=== PATIENT | male | born 1990 | race American Indian/Alaskan Native ===

== ENCOUNTER 2017-07-08 19:35 | Emergency (ER) | payer MEDICAID ==
[2017-07-08] MEDS ORDERED: BENTYL PO ONE (23:31)
[2017-07-08] MEDS ORDERED: ZOFRAN ODT PO ONE (23:31)
--- NOTE | 2017-07-08 23:31 | Emergency Department Report ---
Vomiting/Diarrhea - HPI Chief Complaint: Nausea/Vomiting/Diarrhea Stated Complaint: STOMACH VIRUS Time Seen by Provider: 07/08/17 23:04 Duration: Today Severity: mild (abdominal cramping upper abdomen 2/10) Nausea/Vomiting Severity: Mild (vomited twice this morning) Diarrhea Severity: Mild (diarrhea 1) Pain Location: Epigastric (cramp) Pain Severity: Mild (2/10) Symptoms: Yes Watery Diarrhea, Yes Able to Tolerate Fluids, Yes Family w/ Similar Symptoms (patient said that he lifted his sister who has the same symptoms.), Yes Contacts w/ Similar Symptoms (lives with his sister with similar symptoms), No Bloody diarrhea, No Fever, No Recent Unusual Foods, No Recent Untreated Water, No Recent use of Antibiotics, No Rash, No Hematuria, No Recent URI Symptoms Other History: Patient he reported nausea vomiting and diarrhea this morning with some abdominal cramping to his epigastric area. Denies any vomiting blood or any blood in his stool. Abdominal pain is 2/10. Pain is crampy. Pain is intermittent and nothing makes it better and nothing makes it worse Patient exposed to his sister who has symptoms of nausea vomiting and diarrhea. He said his sister has a bug. No medication taken for pain. Patient denies any urinary symptoms or any back pain. Denies any chest pain or shortness of breath. Denies any cough or cold symptoms. Denies any fever or chills. ED Review of Systems ROS: Stated complaint: STOMACH VIRUS Other details as noted in HPI Comment: All other systems reviewed and negative Constitutional: no symptoms reported ENT: denies: throat pain Respiratory: no symptoms reported Cardiovascular: denies: chest pain, palpitations, dyspnea on exertion, edema, syncope, paroxysmal nocturnal dyspnea Gastrointestinal: abdominal pain, nausea, vomiting, diarrhea. denies: constipation, hematemesis, melena, hematochezia Genitourinary: denies: frequency, hematuria, discharge, testicular pain, testicular mass Musculoskeletal: denies: back pain, joint swelling, arthralgia, myalgia Skin: denies: rash Neurological: denies: headache, weakness, numbness ED Past Medical Hx - Past Medical History Previous Medical History?: No - Surgical History Past Surgical History?: No - Family History Family history: no significant - Social History Smoking Status: Current Every Day Smoker Substance Use Type: Alcohol - Medications Home Medications: Home Medications Medication Instructions Recorded Confirmed Last Taken Type Dicyclomine [Bentyl] 20 mg PO Q8H PRN #12 tablet 07/09/17 Unknown Rx Ondansetron [Zofran Odt] 4 mg PO Q8HR PRN #12 tab.rapdis 07/09/17 Unknown Rx Vomiting Diarrhea Exam - Exam General: Vital signs noted. No distress. Alert and acting appropriately. This is a 26-year-old male well-nourished well-developed in no acute distress. HEENT: Yes Moist Mucous Membranes (uvula midline and oral airways patent), No Pharyngeal Erythema, No Pharyngeal Exudates, No Rhinorrhea (no congestion or drainage), No Conjuctival Injection, No Frontal Tenderness, No Maxillary Tenderness Neck: No Adenopathy, No Rigidity (full range of motion, supple ,no C-spine tenderness) Lungs: Yes Clear Lung Sounds (clear to auscultate bilaterally), No Good Air Exchange, No Wheezes, No Stridor, No Cough, No Nasal Flaring, No Retractions, No Use of Accessory Muscles Heart exam: Regular: Yes (S1 and S2), Murmur: No, Tachycardia: No Abdomen: Tenderness: No (nontender to palpate in all quadrants), Peritoneal Signs: No, Distention: No, Hyperactive Bowel sounds: No (normal bowel sounds in all quadrants) Skin exam: Rash: No, Edema: No, Normal turgor: Yes (clean dry and intact and no rashes or lesions) Neurologic: Alert and oriented, no deficits. Alert and oriented 3, normal gait Musculoskeletal: Unremarkable. Extremity: Clubbing, cyanosis or edema. +2 pulses to all extremities and no neurovascular compromise Exam: Back: No CVA tenderness, no paraspinal or vertebral tenderness. Psych: Normal mood or behavior ED Course Vital Signs 07/08/17 19:50 Temperature 99.7 F H Pulse Rate 93 H Respiratory 16 Rate Blood Pressure 127/55 O2 Sat by Pulse 98 Oximetry Vital Signs 07/08/17 19:50 Temperature 99.7 F H Pulse Rate 93 H Respiratory 16 Rate Blood Pressure 127/55 O2 Sat by Pulse 98 Oximetry - Reevaluation(s) Reevaluation #1: 07/09/17 00:42 Patient given Bentyl 40 mg by mouth and Zofran 8 mg by mouth. He is stable and had no nausea vomiting or diarrhea in the emergency room. He is able to tolerate fluids without any difficulties. ED Medical Decision Making - Lab Data Result diagrams: 07/08/17 23:36 07/08/17 23:36 Lab Results 07/08/17 07/08/17 07/08/17 Range/Units 23:34 23:36 23:36 WBC 8.7 (4.5-11.0) K/mm3 RBC 5.22 H (3.65-5.03) M/mm3 Hgb 15.1 (11.8-15.2) gm/dl Hct 46.2 H (35.5-45.6) % MCV 89 (84-94) fl MCH 29 (28-32) pg MCHC 33 (32-34) % RDW 13.6 (13.2-15.2) % Plt Count 213 (140-440) K/mm3 Lymph % (Auto) 7.0 L (13.4-35.0) % [place] % (Auto) 5.8 (0.0-7.3) % Eos % (Auto) 1.0 (0.0-4.3) % Baso % (Auto) 0.2 (0.0-1.8) % Lymph # 0.6 L (1.2-5.4) K/mm3 Carver # 0.5 (0.0-0.8) K/mm3 Eos # 0.1 (0.0-0.4) K/mm3 Baso # 0.0 (0.0-0.1) K/mm3 Seg Neutrophils % 86.0 H (40.0-70.0) % Seg Neutrophils # 7.5 (1.8-7.7) K/mm3 Sodium 136 L (137-145) mmol/L Potassium 4.1 (3.6-5.0) mmol/L Chloride 96.4 L (98-107) mmol/L Carbon Dioxide 25 (22-30) mmol/L Anion Gap 19 mmol/L BUN 16 (9-20) mg/dL Creatinine 0.9 (0.8-1.5) mg/dL Estimated GFR > 60 ml/min BUN/Creatinine Ratio 18 % Glucose 81 (75-100) mg/dL Calcium 8.9 (8.4-10.2) mg/dL Urine Color Yellow (Yellow) Urine Turbidity Clear (Clear) Urine pH 5.0 (5.0-7.0) Ur Specific [place] 1.029 (1.003-1.030) Urine Protein 30 mg/dl (Negative) mg/dL Urine Glucose (UA) Neg (Negative) mg/dL Urine Ketones Tr (Negative) mg/dL Urine Blood Neg (Negative) Urine Nitrite Neg (Negative) Urine Bilirubin Neg (Negative) Urine Urobilinogen 2.0 (<2.0) mg/dL Ur Leukocyte Esterase Neg (Negative) Urine WBC (Auto) 1.0 (0.0-6.0) /HPF Urine RBC (Auto) 2.0 (0.0-6.0) /HPF Urine Mucus 1+ /HPF - Medical Decision Making ED course: Patient here reports that he was in contact with someone with nausea vomiting and diarrhea from stoma bag in the 70s same symptoms. He had 2 episode of vomiting and one episode of diarrhea this morning at home. He is able to tolerate liquids. He was given Bentyl 40 mg by mouth and Zofran 8 mg ODT in emergency room which she tolerated without any problems. Abdominal exam is normal. Patient urinalysis is stable, CBC stable except for some minor abnormalities and BMP is stable except for some minor abnormalities. I discussed diagnosis and treatment plan the patient along with lab results and he voiced understanding and I discussed with him that he needs to follow up with his primary care physician in 3 days. Patient discharged home with prescription for Bentyl and Zofran. Critical care attestation.: If time is entered above; I have spent that time in minutes in the direct care of this critically ill patient, excluding procedure time. ED Disposition Clinical Impression: Nausea vomiting and diarrhea, Low grade fever Abdominal pain Qualifiers: Abdominal location: epigastric Qualified Code(s): R10.13 - Epigastric pain Disposition: DC-01 TO HOME OR SELFCARE Is pt being admited?: No Does the pt Need Aspirin: No Condition: Stable Instructions: Acute Nausea and Vomiting (ED), Abdominal Pain (ED), Nutrition Tips for Relief of Diarrhea (ED), Acute Diarrhea (ED), Gastroenteritis (ED) Additional Instructions: Please increase her fluid intake to 2-3 L of water daily. Take Bentyl this will relieve abdominal cramping and Zofran will help to relieve nausea and vomiting. Diet including bananas, rice, applesauce and toast over the next 72 hours Practice good hand aching. see primary care in 3 days and if he do not have one follow-up with outside [facility] primary care Prescriptions: Dicyclomine [Bentyl] 20 mg PO Q8H PRN #12 tablet PRN Reason: abdominal cramping. Ondansetron [Zofran Odt] 4 mg PO Q8HR PRN #12 tab.rapdis PRN Reason: Nausea And Vomiting Referrals: [facility] [Outside] - 2-3 Days Forms: Work/School Release Form(ED)
[2017-07-08 23:54] LABS: Basophils % (Auto) 0.2 % (0.0-1.8); Eosinophils # (Auto) 0.1 K/mm3 (0.0-0.4); Hematocrit 46.2 % (35.5-45.6); Hemoglobin 15.1 gm/dl (11.8-15.2); Lymphocytes # (Auto) 0.6 K/mm3 (1.2-5.4); Mean Corpuscular HGB Conc 33 % (32-34); Mean Corpuscular Hemoglobin 29 pg (28-32); Mean Corpuscular Volume 89 fl (84-94); Monocytes # (Auto) 0.5 K/mm3 (0.0-0.8); Monocytes % (Auto) 5.8 % (0.0-7.3); Platelet Count 213 K/mm3 (140-440); Red Blood Count 5.22 M/mm3 (3.65-5.03); Red Cell Distribution Width 13.6 % (13.2-15.2)
[2017-07-09 00:08] LABS: Bilirubin,Urine NEG (Negative); Blood,Urine NEG (Negative); Color,Urine Yellow (Yellow); Mucus,Urine 1+ /HPF
[2017-07-09 00:14] LABS: BUN/Creatinine Ratio 18; Blood Urea Nitrogen 16 mg/dL (9-20); Calcium 8.9 mg/dL (8.4-10.2); Hemolysis Index 26
[2017-07-09 02:16] VITALS: BP 124/58
== END 2017-07-09 01:05 | disposition home or self-care (01) ==
LOC: ED 19:35
DX: R11.2 Nausea with vomiting, unspecified (principal); R19.7 Diarrhea, unspecified; R50.9 Fever, unspecified; R10.13 Epigastric pain; F17.200 Nicotine dependence, unspecified, uncomplicated
CPT/HCPCS: 36415; 80048; 81001; 85025; 99283; Q0162

== ENCOUNTER 2018-07-11 15:44 | Emergency (ER) | payer MEDICAID ==
--- NOTE | 2018-07-11 16:16 | Emergency Department Report ---
Chief Complaint: Abdominal Pain Stated Complaint: ABD PAIN/VOMITING Time Seen by Provider: 07/11/18 16:14 - HPI History of Present Illness: HERE FOR VOMITING VOMITING P BREAKFAST ATE A HOT DOG THAT DIDNT SIT WELL RX NONE PCP NONE PSH NONE MSE COMPLETED VSS MSE screening note: Focused history and physical exam performed. Due to findings the following was ordered: ED Disposition for MSE Condition: Stable
[2018-07-11 16:51] LABS: Hematocrit 44.3 % (35.5-45.6); Hemoglobin 15.2 gm/dl (11.8-15.2); Mean Corpuscular HGB Conc 34 % (32-34); Mean Corpuscular Volume 89 fl (84-94); Platelet Count 241 K/mm3 (140-440); Red Blood Count 5.01 M/mm3 (3.65-5.03); Red Cell Distribution Width 13.4 % (13.2-15.2)
[2018-07-11 17:22] LABS: Alanine Aminotransferase 22 units/L (7-56); Albumin 4.4 g/dL (3.9-5); BUN/Creatinine Ratio 13; Blood Urea Nitrogen 12 mg/dL (9-20); Calcium 9.2 mg/dL (8.4-10.2); Hemolysis Index 6
[2018-07-11] MEDS ORDERED: ZOFRAN ODT PO ONE (19:37)
--- NOTE | 2018-07-11 19:41 | Emergency Department Report ---
ED General Adult HPI - General Chief complaint: Abdominal Pain Stated complaint: ABD PAIN/VOMITING Time Seen by Provider: 07/11/18 16:14 Source: patient Mode of arrival: Ambulatory Limitations: No Limitations - History of Present Illness Initial comments: Pt is a 27 yo male who presents to the ED with c/o N/V that began last night after eating spaghetti. He states he has a churning feeling in his abdomen but no abd pain. He denies any diarrhea or fever. He had a normal BM last night. He denies any recent travel, water from a different source, or recent abx. The patient is tolerating fluid intake without difficulty. He states he has been drinking gingerale. He denies any PMHx, no daily meds, no allergies to medications. Severity scale (0 -10): 0 - Related Data Previous Rx's Medication Instructions Recorded Last Taken Type Ibuprofen [Motrin 600 MG tab] 600 mg PO Q8H PRN #30 tablet 10/28/17 Unknown Rx Dicyclomine [Bentyl] 20 mg PO Q8H PRN #12 tablet 07/11/18 Unknown Rx Ondansetron [Zofran ODT TAB] 4 mg PO Q8HR PRN #12 tab.rapdis 07/11/18 Unknown Rx Allergies Allergy/AdvReac Type Severity Reaction Status Date / Time No Known Allergies Allergy Verified 07/11/18 15:49 ED Review of Systems ROS: Stated complaint: ABD PAIN/VOMITING Other details as noted in HPI Comment: All other systems reviewed and negative ED Past Medical Hx - Past Medical History Previous Medical History?: No - Surgical History Past Surgical History?: No - Social History Smoking Status: Current Every Day Smoker Substance Use Type: None - Medications Home Medications: Home Medications Medication Instructions Recorded Confirmed Last Taken Type Ibuprofen [Motrin 600 MG tab] 600 mg PO Q8H PRN #30 tablet 10/28/17 Unknown Rx Dicyclomine [Bentyl] 20 mg PO Q8H PRN #12 tablet 07/11/18 Unknown Rx Ondansetron [Zofran ODT TAB] 4 mg PO Q8HR PRN #12 tab.rapdis 07/11/18 Unknown Rx ED Physical Exam - General Limitations: No Limitations General appearance: alert, in no apparent distress - Head Head exam: Present: atraumatic, normocephalic - Eye Eye exam: Present: normal appearance - ENT ENT exam: Present: mucous membranes moist - Respiratory Respiratory exam: Present: normal lung sounds bilaterally. Absent: respiratory distress, wheezes, rales, rhonchi, stridor, chest wall tenderness, accessory muscle use, decreased breath sounds, prolonged expiratory - Cardiovascular Cardiovascular Exam: Present: regular rate, normal rhythm, normal heart sounds. Absent: systolic murmur, diastolic murmur, rubs, gallop - GI/Abdominal GI/Abdominal exam: Present: soft, normal bowel sounds. Absent: distended, tenderness, guarding, rebound, rigid - Back Exam Back exam: Absent: CVA tenderness (R), CVA tenderness (L) - Neurological Exam Neurological exam: Present: alert, oriented X3 - Psychiatric Psychiatric exam: Present: normal affect, normal mood - Skin Skin exam: Present: warm, dry, intact ED Course Vital Signs 07/11/18 07/11/18 16:14 20:08 Temperature 99.1 F 98.4 F Pulse Rate 76 67 Respiratory 20 18 Rate Blood Pressure 132/66 131/62 O2 Sat by Pulse 99 98 Oximetry ED Medical Decision Making - Lab Data Result diagrams: 07/11/18 16:40 07/11/18 16:40 Lab Results 07/11/18 07/11/18 Range/Units 16:40 16:40 WBC 5.0 (4.5-11.0) K/mm3 RBC 5.01 (3.65-5.03) M/mm3 Hgb 15.2 (11.8-15.2) gm/dl Hct 44.3 (35.5-45.6) % MCV 89 (84-94) fl MCH 30 (28-32) pg MCHC 34 (32-34) % RDW 13.4 (13.2-15.2) % Plt Count 241 (140-440) K/mm3 Sodium 142 (137-145) mmol/L Potassium 4.3 (3.6-5.0) mmol/L Chloride 103.8 (98-107) mmol/L Carbon Dioxide 27 (22-30) mmol/L Anion Gap 16 mmol/L BUN 12 (9-20) mg/dL Creatinine 0.9 (0.8-1.5) mg/dL Estimated GFR > 60 ml/min BUN/Creatinine Ratio 13 % Glucose 106 H (75-100) mg/dL Calcium 9.2 (8.4-10.2) mg/dL Total Bilirubin 0.60 (0.1-1.2) mg/dL AST 21 (5-40) units/L ALT 22 (7-56) units/L Alkaline Phosphatase 68 (35-129) units/L Total Protein 7.3 (6.3-8.2) g/dL Albumin 4.4 (3.9-5) g/dL Albumin/Globulin Ratio 1.5 % Lipase 35 (13-60) units/L Vital Signs 07/11/18 16:14 Temperature 99.1 F Pulse Rate 76 Respiratory 20 Rate Blood Pressure 132/66 O2 Sat by Pulse 99 Oximetry - Medical Decision Making Pt is a 27 yo male who presents to the ED with c/o N/V that began last night after eating spaghetti. He states he has a churning feeling in his abdomen but no abd pain. He denies any diarrhea or fever. He had a normal BM last night. He denies any recent travel, water from a different source, or recent abx. The patient is tolerating fluid intake without difficulty. He states he has been drinking gingerale. He denies any PMHx, no daily meds, no allergies to medications. VSS. labs WNL. no abd tenderness on examination. Pt given zofran and bentyl in the ED and feels much better. will give pt a prescription for both medications. Advised to follow up with PCP in the next 2-3 days. Continue drinking plenty of fluids, eat a bland diet. Return to the emergency room for any new or worsening symptoms. - Differential Diagnosis gastroenteritis, gerd, viral syndrome, N/V Critical care attestation.: If time is entered above; I have spent that time in minutes in the direct care of this critically ill patient, excluding procedure time. ED Disposition Clinical Impression: Nausea & vomiting Qualifiers: Vomiting type: unspecified Vomiting Intractability: non-intractable Qualified Code(s): R11.2 - Nausea with vomiting, unspecified Disposition: DC-01 TO HOME OR SELFCARE Is pt being admited?: No Does the pt Need Aspirin: No Condition: Stable Instructions: Acute Nausea and Vomiting (ED) Additional Instructions: Please follow up with primary care doctor in the next 2-3 days. Take medication as prescribed. Return to the emergency room for any new or worsening symptoms. Continue drinking plenty of fluids, eat a bland diet. Prescriptions: Dicyclomine [Bentyl] 20 mg PO Q8H PRN #12 tablet PRN Reason: abdominal cramping. Ondansetron [Zofran ODT TAB] 4 mg PO Q8HR PRN #12 tab.rapdis PRN Reason: Nausea And Vomiting Referrals: LUZ THOMPSON MD [Primary Care Provider] - 2-3 Days Forms: Work/School Release Form(ED) Time of Disposition: 20:53 Print Language: CANADIAN
[2018-07-11 20:23] VITALS: BP 131/62
[2018-07-11 20:26] LABS: Bilirubin,Urine NEG (Negative); Blood,Urine NEG (Negative); Color,Urine Yellow (Yellow); Mucus,Urine FEW /HPF; Protein,Urine <15 mg/dL mg/dL (Negative); Urobilinogen,Urine < 2.0 mg/dL (<2.0)
[2018-07-11] MEDS ORDERED: BENTYL PO ONE (20:37)
== END 2018-07-11 21:02 | disposition home or self-care (01) ==
LOC: ED 15:44
DX: R11.2 Nausea with vomiting, unspecified (principal); F17.200 Nicotine dependence, unspecified, uncomplicated
CPT/HCPCS: 36415; 80053; 81001; 83690; 85027; 99283; Q0162

== ENCOUNTER 2018-10-20 12:36 | Emergency (ER) | payer MEDICAID ==
--- NOTE | 2018-10-20 12:46 | Event Note ---
ED Screening Note Date of service: 10/20/18 Time: 12:42 ED Screening Note: This is a 28 y.o. M. that presents to the ER from a plasma clinic and told his heart wasn't right. Denies chest pain, SOB, palpitations, nausea and vomiting. Current marijuana, occasional ETOH drinker. This initial assessment/diagnostic orders/clinical plan/treatment(s) is/are subject to change based on patients health status, clinical progression and re- assessment by fellow clinical providers in the ED. Further treatment and workup at subsequent clinical providers discretion. Patient/guardian urged not to elope from the ED as their condition may be serious if not clinically assessed and managed. Initial orders include:
[2018-10-20 12:47] VITALS: BP 142/75
--- NOTE | 2018-10-20 13:42 | Emergency Department Report ---
ED General Adult HPI - General Chief complaint: Medical Clearance Stated complaint: HEART ISSUES Time Seen by Provider: 10/20/18 12:41 Source: patient Mode of arrival: Ambulatory Limitations: No Limitations - History of Present Illness Initial comments: Patient is a 28-year-old -[place] male who states [place] [facility] [place] [facility] [place] and when the nurse was taken his vital signs she told him that he had some irregularity with his heart that he needed to [place] to the emergency department. Patient states he has no chest pain shortness of breath nausea vomiting palpitations or feelings of being near syncope - Related Data Previous Rx's Medication Instructions Recorded Last Taken Type Ibuprofen [Motrin 600 MG tab] 600 mg PO Q8H PRN #30 tablet 10/28/17 Unknown Rx Dicyclomine [Bentyl] 20 mg PO Q8H PRN #12 tablet 07/11/18 Unknown Rx Ondansetron [Zofran ODT TAB] 4 mg PO Q8HR PRN #12 tab.rapdis 07/11/18 Unknown Rx Allergies Allergy/AdvReac Type Severity Reaction Status Date / Time No Known Allergies Allergy Verified 07/11/18 15:49 ED Review of Systems ROS: Stated complaint: HEART ISSUES Other details as noted in HPI Comment: All other systems reviewed and negative ED Past Medical Hx - Past Medical History Previous Medical History?: No - Surgical History Past Surgical History?: No - Social History Smoking Status: Never Smoker Substance Use Type: Alcohol, Marijuana - Medications Home Medications: Home Medications Medication Instructions Recorded Confirmed Last Taken Type Ibuprofen [Motrin 600 MG tab] 600 mg PO Q8H PRN #30 tablet 10/28/17 Unknown Rx Dicyclomine [Bentyl] 20 mg PO Q8H PRN #12 tablet 07/11/18 Unknown Rx Ondansetron [Zofran ODT TAB] 4 mg PO Q8HR PRN #12 tab.rapdis 07/11/18 Unknown Rx ED Physical Exam - General Limitations: No Limitations General appearance: alert, in no apparent distress - Head Head exam: Present: atraumatic, normocephalic - Eye Eye exam: Present: normal appearance - ENT ENT exam: Present: mucous membranes moist - Neck Neck exam: Present: normal inspection - Respiratory Respiratory exam: Present: normal lung sounds bilaterally. Absent: respiratory distress, wheezes, rales, rhonchi - Cardiovascular Cardiovascular Exam: Present: regular rate, normal rhythm. Absent: systolic murmur, diastolic murmur, rubs, gallop - GI/Abdominal GI/Abdominal exam: Present: soft, normal bowel sounds. Absent: distended, tenderness, guarding, rebound - Rectal Rectal exam: Present: deferred - Extremities Exam Extremities exam: Present: normal inspection - Back Exam Back exam: Present: normal inspection - Neurological Exam Neurological exam: Present: alert, oriented X3 - Psychiatric Psychiatric exam: Present: normal affect, normal mood - Skin Skin exam: Present: warm, dry, intact, normal color. Absent: rash ED Course Vital Signs 10/20/18 10/20/18 12:42 13:10 Temperature 97.5 F L Pulse Rate 77 Respiratory 18 18 Rate Blood Pressure 142/75 O2 Sat by Pulse 99 98 Oximetry ED Medical Decision Making - EKG Data -: EKG Interpreted by Me EKG shows normal: sinus rhythm, axis, intervals, QRS complexes, ST-T waves Rate: normal - EKG Data Interpretation: normal EKG - Medical Decision Making Patient is a 28-year-old gentleman who is presenting with medical clearance knee. Patient was told to rest year because of some type of potential heart issue. Patient is asymptomatic. Patient has a normal physical exam. Patient's EKG is within normal limits. Patient be discharged home to follow-up as needed. Critical care attestation.: If time is entered above; I have spent that time in minutes in the direct care of this critically ill patient, excluding procedure time. ED Disposition Clinical Impression: Physically well but worried Disposition: DC-01 TO HOME OR SELFCARE Is pt being admited?: No Does the pt Need Aspirin: No Condition: Stable Referrals: RASHEEDA RAMÍREZ MD [Primary Care Provider] - 3-5 Days Time of Disposition: 13:43
== END 2018-10-20 13:59 | disposition home or self-care (01) ==
LOC: ED 12:36
DX: I49.9 Cardiac arrhythmia, unspecified (principal); F12.10 Cannabis abuse, uncomplicated; Z79.899 Other long term (current) drug therapy
CPT/HCPCS: 93005; 93010; 99282

== ENCOUNTER 2020-10-30 13:52 | Emergency (ER) | payer MEDICAID ==
[2020-10-30 14:38] VITALS: BP 135/84
--- NOTE | 2020-10-30 15:39 | XRay Report ---
XR tibia fibula 1V LT INDICATION / CLINICAL INFORMATION: PAIN/ SWELLING. COMPARISON: None available. FINDINGS: BONES/JOINT(S): No acute fracture or subluxation. No significant degenerative changes. SOFT TISSUES: No significant abnormality. ADDITIONAL FINDINGS: None. Signer Name: Danilo Ramires MD Signed: 10/30/2020 3:35 PM Workstation Name: [id number]
[2020-10-30] MEDS ORDERED: TETANUS,DIPH,PERTUSS(ACELL) VACCINE 0.5 ML SYRINGE IM ONE (19:26)
--- NOTE | 2020-10-30 19:33 | Emergency Department Report ---
ED Lower Extremity HPI - General Chief Complaint: Extremity Injury, Lower Stated Complaint: LEG PAINS Time Seen by Provider: 10/30/20 19:21 Source: patient Mode of arrival: Ambulatory Limitations: No Limitations - History of Present Illness Initial Comments: Patient is a 30-year-old male who presents emergency room complaints of a left leg injury that occurred 6 days ago. Patient states that [place] he [place] slipped and fell and injured his left leg. States since then he has been having left lower leg pain and swelling. States he also has abrasions to the left leg which he reports he has been cleaning with peroxide. He is unsure of his last tetanus immunization. He states he has been ambulating and but has discomfort with ambulation. He denies any numbness or weakness. No past medical history. No allergies to medications. He denies ever injuring in the past. - Related Data Previous Rx's Medication Instructions Recorded Last Taken Type Ibuprofen [Motrin 600 MG tab] 600 mg PO Q8H PRN #30 tablet 10/28/17 Unknown Rx Dicyclomine [Bentyl] 20 mg PO Q8H PRN #12 tablet 07/11/18 Unknown Rx Ondansetron [Zofran ODT TAB] 4 mg PO Q8HR PRN #12 tab.rapdis 07/11/18 Unknown Rx Naproxen [EC-Naprosyn] 500 mg PO BID PRN #20 tablet. 10/30/20 Unknown Rx Neomycin/Bacitracin/Polymyxinb 1 applicatio TP BID #14 oint...g. 10/30/20 Unknown Rx [Triple Antibiotic Ointment] Allergies Allergy/AdvReac Type Severity Reaction Status Date / Time No Known Allergies Allergy Verified 10/30/20 14:33 ED Review of Systems ROS: Stated complaint: LEG PAINS Other details as noted in HPI Comment: All other systems reviewed and negative ED Past Medical Hx - Past Medical History Previous Medical History?: No - Surgical History Past Surgical History?: No - Social History Smoking Status: Never Smoker Substance Use Type: Alcohol, Marijuana - Medications Home Medications: Home Medications Medication Instructions Recorded Confirmed Last Taken Type Ibuprofen [Motrin 600 MG tab] 600 mg PO Q8H PRN #30 tablet 10/28/17 Unknown Rx Dicyclomine [Bentyl] 20 mg PO Q8H PRN #12 tablet 07/11/18 Unknown Rx Ondansetron [Zofran ODT TAB] 4 mg PO Q8HR PRN #12 tab.rapdis 07/11/18 Unknown Rx Naproxen [EC-Naprosyn] 500 mg PO BID PRN #20 tablet. 10/30/20 Unknown Rx Neomycin/Bacitracin/Polymyxinb 1 applicatio TP BID #14 oint...g. 10/30/20 Unknown Rx [Triple Antibiotic Ointment] ED Physical Exam - General Limitations: No Limitations General appearance: alert, in no apparent distress - Head Head exam: Present: atraumatic, normocephalic - Eye Eye exam: Present: normal appearance - ENT ENT exam: Present: mucous membranes moist - Extremities Exam Extremities exam: Present: other (ttp to the left anterior reyes and left medial ankle, there is edema present to the LLE, there is ecchymosis and healing abrasions present, no erythema, no increased warmth, no calf ttp, achiles tendon is intact, FROM of the LLE, neurovasculalry intact) - Neurological Exam Neurological exam: Present: alert, oriented X3 - Psychiatric Psychiatric exam: Present: normal affect, normal mood - Skin Skin exam: Present: warm, dry ED Course Vital Signs 10/30/20 14:37 Temperature 98.1 F Pulse Rate 62 Respiratory 20 Rate Blood Pressure 135/84 O2 Sat by Pulse 99 Oximetry ED Lower Extremity MDM - Radiology Data Radiology results: report reviewed Ordering Physician: JESSIE RENO Date of Service: 10/30/20 Procedure(s): XR ankle 3+V LT Accession Number(s): [id number] cc: JESSIE RENO Fluoro Time In Minutes: LEFT ANKLE 3 VIEW(S) INDICATION / CLINICAL INFORMATION: fall, left ankle pain and swelling COMPARISON: None available. FINDINGS: BONES / JOINT(S): No acute fracture or subluxation. No significant arthritis. SOFT TISSUES: Moderate diffuse soft tissue swelling/edema ADDITIONAL FINDINGS: None. Signer Name: Shaquille Santiago MD Signed: 10/30/2020 8:01 PM Workstation Name: [id number] Transcribed By: TL Dictated By: Shaquille Santiago MD Electronically Authenticated By: Shaquille Santiago MD Signed Date/Time: 10/30/202000 DD/ 00 TD/TT: Print Cancel Ordering Physician: JESSIE RENO Date of Service: 10/30/20 Procedure(s): XR foot 3+V LT Accession Number(s): [id number] cc: JESSIE RENO Fluoro Time In Minutes: LEFT FOOT 3 VIEW(S) INDICATION / CLINICAL INFORMATION: fall, left foot pain and swelling COMPARISON: None available. FINDINGS: BONES / JOINT(S): No acute fracture or subluxation. No significant arthritis. SOFT TISSUES: No significant abnormality. ADDITIONAL FINDINGS: None. Signer Name: Shaquille Santiago MD Signed: 10/30/2020 8:01 PM Workstation Name: [id number] Transcribed By: CAMPBELL Dictated By: Shaquille Santiago MD Electronically Authenticated By: Shaquille Santiago MD Signed Date/Time: 10/30/202000 DD/ 00 TD/TT: Ordering Physician: AGNIESZKA SNYDER MD Date of Service: 10/30/20 Procedure(s): XR tibia fibula 1V LT Accession Number(s): [id number] cc: AGNIESZKA SNYDER MD Fluoro Time In Minutes: XR tibia fibula 1V LT INDICATION / CLINICAL INFORMATION: PAIN/ SWELLING. COMPARISON: None available. FINDINGS: BONES/JOINT(S): No acute fracture or subluxation. No significant degenerative changes. SOFT TISSUES: No significant abnormality. ADDITIONAL FINDINGS: None. Signer Name: Danilo Ramires MD Signed: 10/30/2020 3:35 PM Workstation Name: [id number] Transcribed By: TERRY Dictated By: Danilo Ramires MD Electronically Authenticated By: Danilo Ramires MD Signed Date/Time: 10/30/201534 DD/ 34 TD/TT: - Medical Decision Making Patient is a 30-year-old male who presents emergency room complaints of a left leg injury that occurred 6 days ago. Patient states that [place] when he accidentally slipped and fell and injured his left leg. States since then he has been having left lower leg pain and swelling. States he also has abrasions to the left leg which he reports he has been cleaning with peroxide. He is unsure of his last tetanus immunization. He states he has been ambulating and but has discomfort with ambulation. He denies any numbness or weakness. No past medical history. No allergies to medications. He denies ever injuring in the past. Vitals are stable. On exam:ttp to the left anterior reyes and left medial ankle, there is edema present to the LLE, there is ecchymosis and healing abrasions present, no erythema, no increased warmth, no calf ttp, achiles tendon is intact, FROM of the LLE, neurovasculalry intact. X- ray left ankle:BONES / JOINT(S): No acute fracture or subluxation. No significant arthritis. SOFT TISSUES: Moderate diffuse soft tissue swelling/edema ADDITIONAL FINDINGS: None. X-ray left foot: BONES / JOINT(S): No acute fracture or subluxation. No significant arthritis. SOFT TISSUES: No significant abnormality. ADDITIONAL FINDINGS: None. X-ray left tib-fib: BONES/JOINT(S): No acute fracture or subluxation. No significant degenerative changes. SOFT TISSUES: No significant abnormality. ADDITIONAL FINDINGS: None. Patient placed in ankle stirrup splint and given crutches by nurse remained neurov ascular intact. Patient given tetanus immunization. Discussed all results with patient answered questions. discussed the importance of orthopedic follow-up. advised pt Please use medication as prescribed. Follow-up with a primary care doctor. Please keep areas clean, dry, covered. Wash with antibacterial soap and water pat dry. No hot tub, no pool, no soaking water. Showering is fine. Follow-up with a human services care specialist. Return to emergency room for any new or worsening symptoms. Critical care attestation.: If time is entered above; I have spent that time in minutes in the direct care of this critically ill patient, excluding procedure time. ED Disposition Clinical Impression: Abrasion, left lower leg, initial encounter Left leg injury Qualifiers: Encounter type: initial encounter Qualified Code(s): S89.92XA - Unspecified injury of left lower leg, initial encounter Left ankle sprain Qualifiers: Encounter type: initial encounter Involved ligament of ankle: unspecified ligament Qualified Code(s): S93.402A - Sprain of unspecified ligament of left ankle, initial encounter Disposition: 01 HOME / SELF CARE / HOMELESS Is pt being admited?: No Does the pt Need Aspirin: No Condition: Stable Instructions: Abrasion, Ankle Sprain, [id number], Contusion, [id number] Additional Instructions: Please use medication as prescribed. Follow-up with a primary care doctor. Please keep areas clean, dry, covered. Wash with antibacterial soap and water pat dry. No hot tub, no pool, no soaking water. Showering is fine. Follow-up with a human services care specialist. Return to emergency room for any new or worsening symptoms. Prescriptions: Naproxen [EC-Naprosyn] 500 mg PO BID PRN #20 tablet.dr GAFFNEY Reason: pain Neomycin/Bacitracin/Polymyxinb [Triple Antibiotic Ointment] 1 applicatio TP BID #14 oint...g. Referrals: JARED CARTER MD [Staff Physician] - 3-5 Days [facility] [Provider Group] - 3-5 Days LUZ THOMPSON MD [Staff Physician] - 3-5 Days [facility] [Provider Group] - 3-5 Days Forms: Work/School Release Form(ED) Time of Disposition: 20:10 Print Language: THAI
--- NOTE | 2020-10-30 20:05 | XRay Report ---
LEFT ANKLE 3 VIEW(S) INDICATION / CLINICAL INFORMATION: fall, left ankle pain and swelling COMPARISON: None available. FINDINGS: BONES / JOINT(S): No acute fracture or subluxation. No significant arthritis. SOFT TISSUES: Moderate diffuse soft tissue swelling/edema ADDITIONAL FINDINGS: None. Signer Name: Shaquille Santiago MD Signed: 10/30/2020 8:01 PM Workstation Name: [id number]
--- NOTE | 2020-10-30 20:06 | XRay Report ---
LEFT FOOT 3 VIEW(S) INDICATION / CLINICAL INFORMATION: fall, left foot pain and swelling COMPARISON: None available. FINDINGS: BONES / JOINT(S): No acute fracture or subluxation. No significant arthritis. SOFT TISSUES: No significant abnormality. ADDITIONAL FINDINGS: None. Signer Name: Shaquille Santiago MD Signed: 10/30/2020 8:01 PM Workstation Name: [id number]
== END 2020-10-31 01:33 | disposition home or self-care (01) ==
LOC: ED 13:52
DX: S93.402A Sprain of unspecified ligament of left ankle, initial encounter (principal); S89.92XA Unspecified injury of left lower leg, initial encounter; W19.XXXA Unspecified fall, initial encounter; Y93.01 Activity, walking, marching and hiking; Y92.89 Other specified places as the place of occurrence of the external cause; Y99.8 Other external cause status
CPT/HCPCS: 90471; 90715; 99283